=== PATIENT | female | born 1975 | race Caucasian/White ===

== ENCOUNTER 2023-08-12 06:26 | Day surgery (SDC) | payer BC, SELFPAY ==
[2023-08-12] VITALS (8 sets, daily range): BP systolic 100–119; BP diastolic 49–76; BMI 23.4
[2023-08-12] MEDS: NORMOSOL-R 1000 IV (08:45)
[2023-08-12 08:48] LABS: Glucose - Point of Care 130 mg/dl (70-99)
[2023-08-12 11:00] LABS: Glucose - Point of Care 136 mg/dl (70-99)
== END 2023-08-12 12:30 | disposition home or self-care (01) ==
LOC: SDS 06:26
PROVIDERS: ATTENDING PHYSICIAN Urology
DX: N13.5 Crossing vessel and stricture of ureter without hydronephrosis (principal); N13.30 Unspecified hydronephrosis; N12 Tubulo-interstitial nephritis, not specified as acute or chronic; N39.0 Urinary tract infection, site not specified
CPT/HCPCS: 52332; 52351; 74420; 76000; 82962; A4300; C1769; C2617

== ENCOUNTER 2023-09-16 06:08 | Day surgery (SDC) | payer BC, SELFPAY ==
[2023-09-10 09:02] VITALS: BMI 24.2
[2023-09-10 10:06] LABS: Hematocrit 34.2 % (37.0-47.0); Hemoglobin 11.1 g/dL (12.0-16.0); Mean Corp Hgb Conc. 32.5 g/dL (33.0-37.0); Mean Corpuscular Hgb 27.1 pg (27.0-31.0); Mean Corpuscular Volume 83.4 fL (81.0-99.0); Mean Platelet Volume 9.4 fL (7.4-10.4); Platelet Count 324 10^3/uL (130-400); Red Cell Dist. Width 15.4 % (11.5-14.5)
[2023-09-10 10:18] LABS: INR 0.96; PT 12.6 Sec (11.4-14.6)
[2023-09-10 10:36] LABS: Blood Urea Nitrogen 38 mg/dl (7-17); Calcium 9.4 mg/dl (8.4-10.2); Carbon Dioxide 28 mmol/L (22-30); Chloride 96 mmol/L (98-107); Estimated Creatinine Clearance 44 ml/min; Glucose 189 mg/dl (70-99); Potassium 4.8 mmol/L (3.5-5.1); Sodium 135 mmol/L (135-145); eGFR 43.25
[2023-09-16] VITALS (17 sets, daily range): BP systolic 105–139; BP diastolic 58–83; BMI 24.2
[2023-09-16 06:56] LABS: Glucose - Point of Care 454 mg/dl (70-99)
[2023-09-16 07:25] LABS: Glucose 397 mg/dl (70-99)
[2023-09-16] MEDS: NSS 1000 IV ×3 (07:27→22:13)
[2023-09-16] MEDS: NOVOLOG vial 7 UNITS SC (07:28)
[2023-09-16 08:16] LABS: Glucose - Point of Care 397 mg/dl (70-99)
[2023-09-16] MEDS: NOVOLOG vial 10 UNITS SC (08:24)
[2023-09-16 08:58] LABS: Glucose - Point of Care 315 mg/dl (70-99)
[2023-09-16 09:29] LABS: Glucose - Point of Care 252 mg/dl (70-99)
[2023-09-16 10:03] LABS: Glucose - Point of Care 119 mg/dl (70-99)
[2023-09-16 10:35] LABS: Glucose - Point of Care 101 mg/dl (70-99)
[2023-09-16 11:02] LABS: Glucose - Point of Care 67 mg/dl (70-99)
[2023-09-16 11:38] LABS: Glucose - Point of Care 125 mg/dl (70-99)
[2023-09-16 12:02] LABS: Glucose - Point of Care 112 mg/dl (70-99)
--- NOTE | 2023-09-16 12:53 | W.IMMPOSTOP ---
Surgical Immed Post Op Note
-
Primary Surgeon: Francescafer
Assisting Surgeon: -
Pre-op Diagnosis: L UPJ obstruction
Post-op Diagnosis: same
Procedure Performed: Robotic L pyeloplasty
Anesthesia Type: general
Specimen / Cultures: UPJ
Estimated Blood Loss: 10cc
Complications: none
Operative Findings: none
[2023-09-16 13:03] LABS: Glucose - Point of Care 77 mg/dl (70-99)
[2023-09-16] MEDS: DEXTROSE 50% SYRINGE 6.25 GRAMS IV (13:13)
[2023-09-16] MEDS: DILAUDID 0.25 MG IV (13:30)
[2023-09-16 13:37] LABS: Glucose - Point of Care 97 mg/dl (70-99)
--- NOTE | 2023-09-16 14:03 | CON.HOSP ---
Family Physician
-
Family Physician: ANDREW Sellers
Chief Complaint
-
hyperglycemia during OR
History of Present Illness
48-year-old female, history of type 1 diabetes and ureteral stricture, presented to the hospital for routine robotic pyeloplasty.
Her NURSE EDUCATOR insulin dose was decreased prior to the procedure, which resulted in hyperglycemia during OR.
Hospital service was consulted to help manage her blood glucose.
Medical History
Past Medical History
Past Medical History: Reports Other
Additional Past Medical History:
type 1 diabetes
ureteral stricture
Past Surgical History: Reports and Other
Additional Past Surgical History:
Ganglion cyst removal
chest wall cyst removal
Back cyst removal
Heel spur removal
Social History
Tobacco: Non-smoker
Alcohol: Daily
Family History
Family History: Reviewed & Not Pertinent
Allergies / Home Medications
Allergies reflects when Allergies were last updated in [employer].
Home Medications with original date entered in [employer]
Allergy/Medication List:
Allergies
Allergy/AdvReac Type Severity Reaction Status Date / Time
adhesive Allergy Rash Verified 09/16/23 07:00
amoxicillin Allergy Rash Verified 09/16/23 07:00
Home Medications
Saccharomyces boulardii 250 mg capsule (Florastor) 250 mg PO BID 08/06/23
Vitamin D3 50,000 units PO WEEKLY 08/06/23
albuterol sulfate 90 mcg/actuation aerosol inhaler 2 puff inhalation Q6H PRN asthma 08/06/23
cetirizine 10 mg tablet (Zyrtec) 10 mg PO DAILY 08/06/23
estradiol 0.01% (0.1 mg/gram) vaginal cream 1 appful vaginal DIRECTED 08/06/23
hydrochlorothiazide 12.5 mg tablet 12.5 mg PO DAILY 08/06/23
insulin glargine 100 unit/mL (3 mL) subcutaneous pen (Lantus Solostar U-100 Insulin) 20 unit SC QPM 08/06/23
ipratropium bromide 42 mcg (0.06 %) nasal spray 2 spray intranasal DAILY 08/06/23
multivitamin 1 tab PO DAILY 08/06/23
nortriptyline 10 mg capsule 10 mg PO HS 08/06/23
pantoprazole 20 mg tablet,delayed release 20 mg PO HS 08/06/23
pantoprazole 40 mg tablet,delayed release 40 mg PO DAILY 08/06/23
pregabalin 100 mg capsule 100 mg PO TID 08/06/23
insulin lispro 100 unit/mL subcutaneous solution (Humalog U-100 Insulin) 1 sliding scale dose SC DIRECTED 09/14/23
Review of Systems
-
Constitutional: Reports No Symptoms
Physical Exam
Vital Signs
Vital Signs
Temp Pulse Resp BP Pulse Ox
36.7 C 84 12 114/65 100
09/16/23 13:00 09/16/23 13:30 09/16/23 13:45 09/16/23 13:30 09/16/23 13:30
Physical Exam
General: Well Developed, Well Nourished and Comfortable
HEENT: Normocephalic, Moist Mucous Membranes and Atraumatic
Respiratory: Clear and Non Labored Respirations; Negative Accessory Resp Muscle Use
Cardiac: S1/S2 and Regular Rhythm; Negative Murmur or Rub
GI: Soft, Non Tender, Non Distended and Normal Bowel Sounds
Rectal: Deferred by Provider
Musculoskeletal: No Clubbing, No Cyanosis and No Edema
Skin: Negative Rash
Neuro: Awake and Alert
Psych: Calm and Intact Judgement
Laboratory Results
-
PT 12.6 Sec (11.4-14.6) 09/10/23 09:15
INR 0.96 09/10/23 09:15
APTT 30.0 Sec (23.4-35.0) 09/10/23 09:15
Data Reviewed
-
Lab Data: Labs Reviewed
Impression / Plan
-
48-year-old female, history of type 1 diabetes and ureteral stricture, presented to the hospital for routine robotic pyeloplasty.
Her NURSE EDUCATOR insulin dose was decreased prior to the procedure, which resulted in hyperglycemia during OR.
Hospital service was consulted to help manage her blood glucose.
A/P:
# Type 1 diabetes
Continue prior to admission insulin: Lantus 20 units at bedtime
Cover with sliding scale
Carb controlled diet
Diabetes nurse practitioner consult
# ureteral stricture status post robotic pyeloplasty
# Intermittent BL LE swelling on HCTZ
managed by pt's PCP
# daily alcohol drinking
cover with MSAS during hospital stay
DVT ppx: Lovenox SQ
FC
[2023-09-16 14:06] LABS: Glucose - Point of Care 86 mg/dl (70-99)
[2023-09-16 14:10] LABS: Hematocrit 29.9 % (37.0-47.0); Hemoglobin 10.3 g/dL (12.0-16.0)
[2023-09-16 14:31] LABS: Blood Urea Nitrogen 30 mg/dl (7-17); Calcium 8.8 mg/dl (8.4-10.2); Carbon Dioxide 26 mmol/L (22-30); Chloride 103 mmol/L (98-107); Estimated Creatinine Clearance 55 ml/min; Glucose 87 mg/dl (70-99); Potassium 4.5 mmol/L (3.5-5.1); Sodium 137 mmol/L (135-145); eGFR 56.54
[2023-09-16 14:54] LABS: Glucose - Point of Care 80 mg/dl (70-99)
--- NOTE | 2023-09-16 15:09 | PN.DE.MGMTRT ---
Insulin Management
- -
09/16/2023: Diabetes management consult
48-year-old female admitted for routine robotic pyeloplasty. PMH: T1DM since 25 years old, and ureteral stricture. Was taking Lantus 20 units@HS and Humalog SS using ICR of 1:15 CLAY GRINDER, has a CGM- Dexcom G6 in place. Pt reports that she took 18 units
of Lantus last night and was instructed not to take her short acting insulin. Noted for Hyperglycemia on arrival to the hospital this morning, as high as 454, pt is attributing the Hyperglycemia to not taking her short acting insulin this morning.
Routinely see Director Voice at [facility].
Pt is awake, A/Ox 3, resting in bed, able to discuss diabetes management
Glucose is stable and in range of 80 to 125 post-op after receiving 17 units of NovoLog this morning for txt of the 454 blood sugar
Will resume her home regimen that includes Lantus 20 units @ HS. Will start
NovoLog 5 units AC with low corrective insulin with meals. Discussed with pt and she was agreeable to the plan.
Update A1C, change diet to 1800 dave. Will follow tomorrow
Diabetes care plan discussed with Nurse at bedside
Diabetes History
- -
Type of Diabetes: 1
Pre-Admission Diabetes Regimen
09/16/23
13:59
Creatinine 1.2 H
Insulin Pump Settings
IP Diabetes Regimen
09/16/23 09/16/23 09/16/23
06:55 07:03 08:14
Glucose 397 H
POC Glucose 454 H* 397 H
09/16/23 09/16/23 09/16/23
08:56 09:26 10:02
Glucose
POC Glucose 315 H 252 H 119 H
09/16/23 09/16/23 09/16/23
10:31 11:01 11:37
Glucose
POC Glucose 101 H 67 L 125 H
09/16/23 09/16/2324
12:01 13:02 13:35
Glucose
POC Glucose 112 H 77 97
09/16/23 09/16/23 09/16/23
13:59 14:05 14:53
Glucose 87
POC Glucose 86 80
Patient Education
--- NOTE | 2023-09-16 16:08 | PTCARENOTE ---
Pt arrived to [facility] from PACU s/p Robotic L pyeloplasty. 5 Lap sites, BRO and all C/D/I, Edwards in place draining clear/yellow urine. Pt oriented to call lu and room, bed in lowest position and locked. Call lu within reach.
[2023-09-16 16:47] LABS: Glucose - Point of Care 129 mg/dl (70-99)
[2023-09-16] MEDS: NOVOLOG FLEXPEN-LOW RESISTANCE SC (16:50)
[2023-09-16] MEDS: LYRICA 100 MG PO ×2 (17:13→22:12)
[2023-09-16] MEDS: LANTUS SC (17:14)
[2023-09-16] MEDS: NOVOLOG FLEXPEN 5 UNITS SC (17:15)
[2023-09-16] MEDS: DILAUDID 0.5 MG IV (17:19)
[2023-09-16] MEDS: THIAMINE INJECTION 200 MG IV (20:15)
[2023-09-16 21:29] LABS: Glucose - Point of Care 121 mg/dl (70-99)
[2023-09-16] MEDS: PAMELOR 10 MG PO (22:12)
[2023-09-16] MEDS: PROTONIX 20 MG PO (22:12)
[2023-09-16] MEDS: LANTUS 0.2 UNITS SC (22:13)
[2023-09-16] MEDS: MYLICON 80 MG PO (22:25)
[2023-09-17] MEDS: DILAUDID 0.5 MG IV ×2 (02:03→08:07)
[2023-09-17 03:24] VITALS: BP 95/50
[2023-09-17 05:52] LABS: Hematocrit 27.9 % (37.0-47.0); Hemoglobin 9.6 g/dL (12.0-16.0); Mean Corp Hgb Conc. 34.4 g/dL (33.0-37.0); Mean Corpuscular Hgb 28.6 pg (27.0-31.0); Mean Platelet Volume 9.6 fL (7.4-10.4); Platelet Count 254 10^3/uL (130-400); Red Blood Cell Count 3.36 10^6/uL (4.20-5.40); Red Cell Dist. Width 15.4 % (11.5-14.5); White Blood Cell Count 12.7 10^3/uL (4.8-10.8)
[2023-09-17 06:17] LABS: Blood Urea Nitrogen 23 mg/dl (7-17); Calcium 8.1 mg/dl (8.4-10.2); Carbon Dioxide 25 mmol/L (22-30); Chloride 105 mmol/L (98-107); Estimated Creatinine Clearance 66 ml/min; Glucose 207 mg/dl (70-99); Potassium 4.2 mmol/L (3.5-5.1); Sodium 135 mmol/L (135-145); eGFR > 60.00
[2023-09-17 07:25] LABS: Glucose - Point of Care 239 mg/dl (70-99)
[2023-09-17 07:28] VITALS: BP 90/55
--- NOTE | 2023-09-17 07:35 | PN.DE.MGMTRT ---
Insulin Management
- -
09/17/2023: Diabetes management f/u:
48-year-old female admitted for routine robotic pyeloplasty. PMH: T1DM since 25 years old, and ureteral stricture. Was taking Lantus 20 units@HS and Humalog SS using ICR of 1:15 RESPIRATORY THERAPY DIRECTOR, has a CGM- Dexcom G6 in place. Pt reports that she took 18 units
of Lantus last night and was instructed not to take her short acting insulin. Noted for Hyperglycemia on arrival to the hospital this morning, as high as 454, pt is attributing the Hyperglycemia to not taking her short acting insulin this morning.
Routinely see Recreation Facilities Supervisor at [facility].
Pt is awake, A/Ox 3, resting in bed, able to discuss diabetes management. POD#1 s/p robotic pyeloplasty
09/15 Glucose remained stable and in range of 80 to 125 post-op. Current A1C 9.2%, Discussed with pt
Fasting glucose 209(V) and 239 POC this AM. Her CGM reading is 145. Pt states she did not eat much at breakfast
Will increase Lantus to 22 units @ HS. Cont NovoLog 5 units AC. Change to moderate corrective insulin with meals.
Diabetes plan of care discussed with pt and Pt's Nurse
Diabetes History
- -
Type of Diabetes: 1
Pre-Admission Diabetes Regimen
09/16/23 09/17/23
13:59 04:36
Creatinine 1.2 H 1.0
Insulin Pump Settings
IP Diabetes Regimen
09/16/23 09/16/23 09/16/23
08:14 08:56 09:26
Glucose
POC Glucose 397 H 315 H 252 H
09/16/23 09/16/23 09/16/23
10:02 10:31 11:01
Glucose
POC Glucose 119 H 101 H 67 L
09/16/23 09/16/23 09/16/23
11:37 12:01 13:02
Glucose
POC Glucose 125 H 112 H 77
09/16/23 09/16/23 09/16/23
13:35 13:59 14:05
Glucose 87
POC Glucose 97 86
09/16/23 09/16/23 09/16/23
14:53 16:46 21:28
Glucose
POC Glucose 80 129 H 121 H
09/17/23 09/17/23
04:36 07:24
Glucose 207 H
POC Glucose 239 H
Patient Education
[2023-09-17] MEDS: FLUSH (NSS) 1 FLUSH IV (08:07)
[2023-09-17] MEDS: MYLICON 80 MG PO (08:08)
[2023-09-17] MEDS: NOVOLOG FLEXPEN 5 UNITS SC ×3 (08:17→18:50)
[2023-09-17] MEDS: NOVOLOG FLEXPEN-LOW RESISTANCE 3 UNITS SC (08:17)
[2023-09-17] MEDS: ROCEPHIN 1000 MG IV (08:18)
[2023-09-17] MEDS: PROTONIX 40 MG PO (08:18)
[2023-09-17] MEDS: STERILE WATER FOR INJECTION 10 ML IV (08:18)
[2023-09-17] MEDS: FOLVITE 1 MG PO (08:18)
[2023-09-17] MEDS: LYRICA 100 MG PO ×3 (08:18→21:04)
[2023-09-17] MEDS: THIAMINE INJECTION 200 MG IV ×2 (08:18→20:08)
[2023-09-17] MEDS: ZYRTEC 10 MG PO (08:18)
[2023-09-17] MEDS: DIFLUCAN 200 MG PO (09:20)
[2023-09-17] MEDS: FLUSH (NSS) 2 FLUSH IV (09:21)
[2023-09-17] MEDS: TORADOL 15 MG IV ×3 (09:21→21:04)
[2023-09-17 09:59] LABS: Glycohemoglobin (HgbA1c) 9.2 % (4.0-5.6)
--- NOTE | 2023-09-17 10:35 | CM ---
Addendum entered by Nurys Alvarado 09/17/23 10:51:
Case Management Consult completed; home health referral for VN sent via [employer] and [employer] to [facility]
Original Note:
Met with patient at the bedside; initial assessment completed
Pharmacy verified: [facility], [address], [place]
Patient reported she lives with boyfriend and two children ages 16 & 19 in a multilevel home; enters home via garage; up 10 steps to middle and upper level of the home; powder room on the lower level; upper level bathroom has stall shower with bench
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
DME: Dexcom continuous glucose monitor
SNF/Home Health utilization history: none
Transportation: boyfriend or family will provide ride home
Plan: discharge to home when medically stable with home health services from [facility] for VN
[2023-09-17 11:33] VITALS: BP 75/46
--- NOTE | 2023-09-17 11:49 | PTCARENOTE ---
Addendum entered by Radha Jacobs RN 09/17/23 12:21:
NS Bolus started at [address] Bates-pt reports no urge to void-will monitor.
Original Note:
BP noted. pt asymptomatic. pt currently sitting in bed. Dr Moreno made aware and pt encouraged to increase PO fluids. pt verbalized agreement. pt instructed to call for assistance to get out of bed or if becomes symptomatic. will observe.
--- NOTE | 2023-09-17 12:00 | W.PN.HOSP.TC ---
Today's Communication/Plan
-
see A/P
Assessment / Plan
Assessment / Plan
HPI: 48-year-old female, history of type 1 diabetes and ureteral stricture, presented to the hospital for routine robotic pyeloplasty.
Her INSTITUTIONAL NUTRITION CONSULTANT insulin dose was decreased prior to the procedure, which resulted in hyperglycemia during OR.
Hospital service was consulted to help manage her blood glucose.
A/P:
# Type 1 diabetes
Continue prior to admission insulin: increased Lantus to 22 units HS. Cont NovoLog 5 units AC.
Changed to moderate corrective insulin with meals.
Carb controlled diet
Diabetes nurse practitioner on board
# ureteral stricture status post robotic pyeloplasty 09/15
post op ceftriaxone per Uro
pain control with Tylenol, Percocet, Toradol
Avoid Dilaudid with current hypotension
# Hypotension likely due to post op blood loss
# Acute post op blood loss
will give 1 L NSS bolus for BP 75/46 , monitor BP
Hgb today at 9.6 from 10.3 yesterday
Holding INSTITUTIONAL NUTRITION CONSULTANT HCTZ and high dose Dilaudid
# Intermittent BL LE swelling on HCTZ daily INSTITUTIONAL NUTRITION CONSULTANT
managed by pt's PCP
# daily alcohol drinking
cover with MSAS during hospital stay
DVT ppx: Lovenox SQ
FC
DW Uro
DW RN
Anticipated Discharge: Within 24 hours
Subjective/Interval History
-
Date of Service: September 17, 2023
Objective Data
-
Labs:
Laboratory Results
09/17/23
04:36
WBC 12.7 H
Hgb 9.6 L
Hct 27.9 L
Plt Count 254 D
Sodium 135
Potassium 4.2
Chloride 105
Carbon Dioxide 25
BUN 23 H
Creatinine 1.0
Glucose 207 H
Calcium 8.1 L
Vital Signs:
Vital Signs
Temp Pulse Resp BP Pulse Ox
36.6 C 93 18 75/46 100
09/17/23 11:33 09/17/23 11:33 09/17/23 11:33 09/17/23 11:33 09/17/23 11:33
I&O
09/16/23 09/17/23 09/18/23
06:59 06:59 06:59
Intake Total 420 / 420
Output Total 1570 / 1570
Balance -1150 / -1150
Review of Systems
-
All other systems: Reviewed and negative
Physical Exam
-
General: Well Developed, Well Nourished, No Apparent Distress, Comfortable and Conversant; Negative Respiratory Distress
HEENT: Normocephalic, Atraumatic, Nose Appears Normal and Ears Appear Normal; Negative Oxygen
Respiratory: Clear to Auscultation and Non Labored Respirations; Negative Accessory Resp Muscle Use
Cardiac: Regular Rhythm and S1/S2
GI: Soft, Nontender and Nondistended
Skin: Warm and Dry
Neuro: Awake, Alert, Oriented and AO x 3
Psych: Calm and Intact Judgement/Insight
Data Reviewed
-
Labs: Labs Reviewed by me
[2023-09-17 12:05] LABS: Glucose - Point of Care 135 mg/dl (70-99)
[2023-09-17] MEDS: NSS 1000 IV (12:09)
--- NOTE | 2023-09-17 12:09 | VNURNOTE ---
Met patient at bedside. She reports her scott was removed earlier and she is waiting to see if she voids. She reports she works from home and does not feel she will need VN unless she needs the scott replaced. She reports she is current with PCP
Dr Keira Kapadia States. Explained VN services, frequency of visits, purpose. Patient agreeable if scott replaced. Referral placed in [facility] in case needed. Will continue to follow.
[2023-09-17] MEDS: NOVOLOG FLEXPEN-LOW RESISTANCE SC (12:43)
[2023-09-17 13:26] VITALS: BP 107/65
[2023-09-17 15:19] VITALS: BP 96/54
--- NOTE | 2023-09-17 16:03 | W.PN.URO.CBU ---
Today's Communication / Plan
-
Q6 straight cath to trend PVR
Trend BPs
Assessment / Plan
-
48F post op Robotic L Pyeloplasty 09/15
- IS
- Pain control
- OOB/ambulate
Urinary retention
- Patient voided 400cc with 500cc PVR
- Given prior issues with retention after surgery or hospitalization and need to keep bladder more empty with indwelling stent and new anastomosis, she will likely need to be discharged with scott
- She prefers to stay overnight and continue trying to void on her own
- Ordered Q6 straight cath post void to trend residuals
Hypotension
- asymptomatic low blood pressure today
- Responded to fluid bolus and PO hydration
- Trend HGB - no other signs of blood loss
Type I DM
- appreciate management per hospitalist
- full carb control diet
Diagnosis
-
Date of Service: September 17, 2023
-
Patient Diagnosis:
L UPJ obstruction
Post Op Day:
Subjective
-
Pain controlled overnight
tolerating diet
ambulated in afternoon
Objective
-
Vital Signs
Temp Pulse Resp BP Pulse Ox
98.3 F 101 18 96/54 96
09/17/23 15:19 09/17/23 15:19 09/17/23 15:19 09/17/23 15:19 09/17/23 15:19
Intake and Output
09/16/23 09/17/23 09/18/23
06:59 06:59 06:59
Intake Total 420 / 420 1000 / 1000
Output Total 1570 / 1570 400 / 400
Balance -1150 / -1150 600 / 600
Intake:
Oral fluids 120 / 120
IV fluids (Total) 300 / 300 1000 / 1000
Normosol 300 / 300
Output:
Urine, Scott 1570 / 1570
Urine, Voided 400 / 400
Laboratory Results
09/17/23 04:36
09/17/23 04:36
Physical Exam
-
General - well developed, well nourished, no acute distress
Chest - clear bilaterally
Abdomen - soft, non-tender
Skin - warm & dry with no rash
Neuro - AOx3, no motor deficits
Extremities - no clubbing, no cyanosis, no edema
Incision - clean, dry
Dressing - clean, dry, intact
[2023-09-17 16:37] LABS: Hematocrit 25.4 % (37.0-47.0); Hemoglobin 8.7 g/dL (12.0-16.0); Mean Corp Hgb Conc. 34.3 g/dL (33.0-37.0); Mean Corpuscular Volume 81.7 fL (81.0-99.0); Mean Platelet Volume 9.5 fL (7.4-10.4); Platelet Count 236 10^3/uL (130-400); Red Blood Cell Count 3.11 10^6/uL (4.20-5.40); Red Cell Dist. Width 15.8 % (11.5-14.5); White Blood Cell Count 12.5 10^3/uL (4.8-10.8)
[2023-09-17] MEDS: NSS 250 IV (17:06)
[2023-09-17 17:07] LABS: Glucose - Point of Care 137 mg/dl (70-99)
[2023-09-17] MEDS: NOVOLOG FLEXPEN-MODERATE RESISTANCE SC (17:07)
[2023-09-17 20:54] LABS: Glucose - Point of Care 118 mg/dl (70-99)
[2023-09-17] MEDS: LANTUS 0.22 UNITS SC (21:03)
[2023-09-17] MEDS: PAMELOR 10 MG PO (21:04)
[2023-09-17] MEDS: PROTONIX 20 MG PO (21:05)
[2023-09-17 23:00] VITALS: BP 105/54
[2023-09-18] MEDS: TORADOL 15 MG IV ×3 (03:11→17:16)
[2023-09-18] MEDS: MYLICON 80 MG PO (03:29)
--- NOTE | 2023-09-18 04:52 | PTCARENOTE ---
2100 pt able to void 100ml ICP for 200ml 0300 pt unable to void ICP for 250ml. Pt reports she does not have sensation to void and not in any discomfort. Urine clear yellow. Next ICP due for 0900
--- NOTE | 2023-09-18 06:21 | W.PN.URO.CBU ---
Today's Communication / Plan
-
as patient refuses Edwards, CIC by self will be pursued
Assessment / Plan
-
48F post op Robotic L Pyeloplasty 09/15
Urinary retention
Diagnosis
-
Date of Service: September 18, 2023
-
Patient Diagnosis:
L UPJ obstruction s/p robotic pyeloplasty
persistence urinary retention
Post Op Day: 1
Subjective
-
has not been able to volitionally void
refuses indwelling Edwards: 'I'll do the self-catheter.'
Objective
-
Vital Signs
Temp Pulse Resp BP Pulse Ox
98.9 F 94 16 105/54 96
09/17/23 23:00 09/17/23 23:00 09/17/23 23:00 09/17/23 23:00 09/17/23 23:00
Intake and Output
09/16/23 09/17/23 09/18/23
06:59 06:59 06:59
Intake Total 420 / 420 2330 / 2330
Output Total 1570 / 1570 1300 / 1300
Balance -1150 / -1150 1030 / 1030
Intake:
Oral fluids 120 / 120 1080 / 1080
IV fluids (Total) 300 / 300 1250 / 1250
Normosol 300 / 300
Output:
Urine, Edwards 1570 / 1570
Urine, Voided 850 / 850
Straight cath output 450 / 450
Physical Exam
-
General - well developed, well nourished, no acute distress
Abdomen - surgical sites glued
[2023-09-18 07:39] LABS: % Basophils 0.3 % (0-2); % Eosinophils 1.5 % (0-6); % Immature Granulocytes 1.1 % (0-0.5); % Lymphocytes 20.8 % (20.5-51.1); % Monocytes 5.1 % (1.7-9.3); % Neutrophils 71.2 % (42.2-75.2); Absolute Eosinophils 0.1 10^3/uL (0-0.7); Absolute Immature Granulocytes 0.1 10^3/uL (0-0.05); Absolute Monocytes 0.5 10^3/uL (0.1-0.6); Absolute Neutrophils 6.8 10^3/uL (1.4-6.5); Hematocrit 24.8 % (37.0-47.0); Hemoglobin 8.3 g/dL (12.0-16.0); Mean Corp Hgb Conc. 33.5 g/dL (33.0-37.0); Mean Corpuscular Volume 83.8 fL (81.0-99.0); Mean Platelet Volume 9.9 fL (7.4-10.4); Nucleated Red Blood Cells % 0 %; Platelet Count 206 10^3/uL (130-400); Red Blood Cell Count 2.96 10^6/uL (4.20-5.40); Red Cell Dist. Width 15.5 % (11.5-14.5); White Blood Cell Count 9.5 10^3/uL (4.8-10.8)
[2023-09-18 07:52] VITALS: BP 82/57
[2023-09-18 07:53] LABS: Blood Urea Nitrogen 27 mg/dl (7-17); Calcium 8.1 mg/dl (8.4-10.2); Carbon Dioxide 24 mmol/L (22-30); Chloride 107 mmol/L (98-107); Estimated Creatinine Clearance 47 ml/min; Glucose 146 mg/dl (70-99); Potassium 4.1 mmol/L (3.5-5.1); Sodium 134 mmol/L (135-145); eGFR 46.99
--- NOTE | 2023-09-18 09:04 | W.PN.HOSP.TC ---
Today's Communication/Plan
-
see A/P
Assessment / Plan
Assessment / Plan
HPI: 48-year-old female, history of type 1 diabetes and ureteral stricture, presented to the hospital for routine robotic pyeloplasty.
Her DAIRY PROCESSING EQUIPMENT OPERATOR insulin dose was decreased prior to the procedure, which resulted in hyperglycemia during OR.
Hospital service was consulted to help manage her blood glucose.
A/P:
# Type 1 diabetes
Continue prior to admission insulin: cont Lantus at 22 units HS. Cont NovoLog 5 units AC.
Changed to moderate corrective insulin with meals.
Carb controlled diet
Diabetes nurse practitioner on board
# ureteral stricture status post robotic pyeloplasty 09/15
post op ceftriaxone per Uro
pain control with Tylenol, Percocet, Toradol
Avoid Dilaudid with current hypotension
Urinary retention noted, CIC teaching per Uro /RN
# Hypotension likely due to post op blood loss
# Acute post op blood loss
s/p 1L NSS bolus, cont maintenance IVF with NSS
Hgb today at 8.3 from 10.3
Holding DAIRY PROCESSING EQUIPMENT OPERATOR HCTZ and high dose Dilaudid
# Intermittent BL LE swelling on HCTZ daily DAIRY PROCESSING EQUIPMENT OPERATOR
managed by pt's PCP
# daily alcohol drinking
cover with MSAS during hospital stay
DVT ppx: Lovenox SQ
FC
Anticipated Discharge: 24 - 48 hours
Subjective/Interval History
-
Date of Service: September 18, 2023
Objective Data
-
Labs:
Laboratory Results
09/18/23
07:07
WBC 9.5
Hgb 8.3 L
Hct 24.8 L
Plt Count 206
Sodium 134 L
Potassium 4.1
Chloride 107
Carbon Dioxide 24
BUN 27 H
Creatinine 1.4 H
Glucose 146 H
Calcium 8.1 L
Vital Signs:
Vital Signs
Temp Pulse Resp BP Pulse Ox
36.8 C 87 16 82/57 97
09/18/23 07:52 09/18/23 07:52 09/18/23 07:52 09/18/23 07:52 09/18/23 07:52
I&O
09/17/23 09/18/23 09/19/23
06:59 06:59 06:59
Intake Total 420 / 420 2630 / 2630
Output Total 1570 / 1570 1300 / 1300
Balance -1150 / -1150 1330 / 1330
Review of Systems
-
All other systems: Reviewed and negative
Physical Exam
-
General: Well Developed, Well Nourished, No Apparent Distress, Comfortable and Conversant; Negative Respiratory Distress
HEENT: Normocephalic, Atraumatic, Nose Appears Normal and Ears Appear Normal; Negative Oxygen
Respiratory: Clear to Auscultation and Non Labored Respirations; Negative Accessory Resp Muscle Use
Cardiac: Regular Rhythm and S1/S2
GI: Soft, Nontender and Nondistended
Skin: Warm and Dry
Neuro: Awake, Alert, Oriented and AO x 3
Psych: Calm and Intact Judgement/Insight
Data Reviewed
-
Labs: Labs Reviewed by me
[2023-09-18] MEDS: NSS 1000 IV (09:16)
[2023-09-18 09:21] LABS: Glucose - Point of Care 195 mg/dl (70-99)
[2023-09-18] MEDS: ZYRTEC 10 MG PO (09:21)
[2023-09-18] MEDS: FOLVITE 1 MG PO (09:21)
[2023-09-18] MEDS: PROTONIX 40 MG PO (09:22)
[2023-09-18] MEDS: LYRICA 100 MG PO ×2 (09:22→17:17)
[2023-09-18] MEDS: STERILE WATER FOR INJECTION 10 ML IV (09:22)
[2023-09-18] MEDS: ROCEPHIN 1000 MG IV (09:22)
[2023-09-18] MEDS: NOVOLOG FLEXPEN-MODERATE RESISTANCE 1 UNITS SC (09:23)
[2023-09-18] MEDS: NOVOLOG FLEXPEN 5 UNITS SC (09:23)
[2023-09-18] MEDS: DIFLUCAN 200 MG PO (09:23)
[2023-09-18] MEDS: THIAMINE INJECTION 200 MG IV (09:26)
[2023-09-18 12:33] LABS: Glucose - Point of Care 154 mg/dl (70-99)
[2023-09-18 13:12] VITALS: BP 86/56
--- NOTE | 2023-09-18 15:19 | CM ---
SW spoke with pt regarding dc planning.
Pt was hoping not to dc with scott. Though would be new to straight cath.
Pt was educated on pros and cons of straight cath vs scott.
Pt says she will dc with scott and accept VN.
Pt to dc with [facility] support
[2023-09-18] MEDS: NSS 500 IV (15:51)
[2023-09-18 16:57] LABS: Glucose - Point of Care 191 mg/dl (70-99)
[2023-09-18 17:16] VITALS: BP 107/61
[2023-09-18] MEDS: NOVOLOG FLEXPEN-MODERATE RESISTANCE SC (17:17)
[2023-09-18] MEDS: NOVOLOG FLEXPEN SC (17:17)
--- NOTE | 2023-09-18 17:59 | PTCARENOTE ---
assumed care of pt this am at 0715. am vital signs and labs noted. Dr Bates aware. NSS @100 ml/hr started per MAY. pt verbalized no urge to void. order noted to teach pt clean intermittent catheterizations. long discussion with pt concerning
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 Dr. Gonzales contacted and decision to insert indwelling Edwards catheter and leg bag teaching with follow up with Dr Moreno.
At 1700, additional NSS Bolus given per MAY. repeat BP at completion of Bolus 107/61-HR 96.
pt demonstrated proper technique to switch drainage bag to leg bag and empty catheter bag.
pt verbalized understanding. pt discharged to home.
== END 2023-09-18 18:29 | disposition home or self-care (01) ==
LOC: SDS 06:08
PROVIDERS: ATTENDING PHYSICIAN Urology; CONSULT PHYSICIAN Internal Medicine; CONSULT PHYSICIAN Nurse Practitioner Acute Care; FAMILY PHYSICIAN Nurse Practitioner Family
DX: N13.5 Crossing vessel and stricture of ureter without hydronephrosis (principal)
CPT/HCPCS: 50544; 88304; 36415; 80048; 82947; 82962; 83036; 85014; 85018; 85025; 85027; 85610; 85730; 86850; 86900; 86901; 93005; C2617

== ENCOUNTER → 2024-01-11 09:51 | Outpatient (REF) | payer BC, SELFPAY | LOC: HWRAD 09:51 | PROVIDERS: ATTENDING PHYSICIAN Urology; FAMILY PHYSICIAN Nurse Practitioner Family | DX: R35.0 Frequency of micturition (principal); N12 Tubulo-interstitial nephritis, not specified as acute or chronic; N39.8 Other specified disorders of urinary system | CPT/HCPCS: 76770 ==